=== PATIENT | female | born 1980 | race Caucasian/White ===

== ENCOUNTER → 2016-09-23 | Outpatient (REF) | LOC: WSOH 10:54 | DX: Z02.4 Encounter for examination for driving license (principal) ==

== ENCOUNTER → 2016-12-02 | Outpatient (REF) | LOC: WSOH 14:02 | DX: Z02.4 Encounter for examination for driving license (principal) ==

== ENCOUNTER → 2021-10-27 | Outpatient (CLI) | payer BC | LOC: MC.RAD 14:24 | DX: Z12.31 Encounter for screening mammogram for malignant neoplasm of breast (principal) ==

== ENCOUNTER → 2023-12-20 | Outpatient (CLI) | payer BC | LOC: MC.RAD 14:31 | DX: Z12.31 Encounter for screening mammogram for malignant neoplasm of breast (principal) ==